=== PATIENT | male | born 1975 | race Hispanic/Latino ===

== ENCOUNTER 2022-08-08 08:35 | Day surgery (SDC) | payer BC ==
[2022-08-05 09:16] VITALS: BMI 26.1
[2022-08-08] MEDS ORDERED: PROPOFOL 40 ML ONE (10:07)
== END 2022-08-08 11:08 | disposition home or self-care (01) ==
LOC: CSHSDC 08:35
PROVIDERS: ATTEND Internal Medicine Gastroenterology
PROC: 0DJD8ZZ Inspection of Lower Intestinal Tract, Via Natural or Artificial Opening Endoscopic (ICD-10-PCS; principal; 2022-08-08)
DX: Z12.11 Encounter for screening for malignant neoplasm of colon (principal); Z98.84 Bariatric surgery status
CPT/HCPCS: J2704